=== PATIENT | female | born 1990 | race American Indian/Alaskan Native ===

== ENCOUNTER 2018-03-21 08:00 | Emergency (ER) | payer OTHER, BC ==
[2018-03-21 08:14] VITALS: BP 110/71
[2018-03-21] MEDS ORDERED: MOTRIN PO ONE (09:55)
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
== END 2018-03-21 10:19 | disposition home or self-care (01) ==
LOC: ED 08:00
DX: S39.012A Strain of muscle, fascia and tendon of lower back, initial encounter (principal); S13.4XXA Sprain of ligaments of cervical spine, initial encounter; Z88.0 Allergy status to penicillin; V89.2XXA Person injured in unspecified motor-vehicle accident, traffic, initial encounter; Y93.89 Activity, other specified; Y92.89 Other specified places as the place of occurrence of the external cause; Y99.8 Other external cause status
CPT/HCPCS: 99282